=== PATIENT | male | born 1935 | race Two or more races ===

== ENCOUNTER 2018-10-31 14:47 | Emergency (ER) | payer MEDICARE, OTHER ==
[~2018-10-31] VITALS: Ht 170.2 cm; Wt 77.3 kg
[~2018-10-31 14:47] MED LIST: ASPI-817 PO; CLOP75TA27 PO; ESOM40CA PO; FINA5TAB4 PO; HYDR12.58 PO; ISOS60TA PO; NIFE30TA23 PO; NYST15CR28 TOP; OLME20TA20 PO; ROSU10TA55 PO; TAMS0.4C2 PO
[2018-10-31 15:13] VITALS: Ht 170.2 cm; Wt 77.3 kg
--- NOTE | 2018-10-31 15:59 | ERD ---
ER Documentation Chief Complaint Chief Complaint Bleeding from pacemaker surgery site X 1 day ROS All systems reviewed and are negative except as per history of present illness. Medications Home Meds Reported Medications Finasteride* (Finasteride*) 5 Mg Tablet, 5 MG PO DAILY, TAB 09/25/18 Tamsulosin Hcl* (Tamsulosin Hcl*) 0.4 Mg Cap.er.24h, 0.4 MG PO HS, CAP 09/25/18 Nystatin* (Nystatin*) 15 Gm Cr, 1 APPLIC TOP BID, #1 TUB 09/25/18 Rosuvastatin Calcium* (Crestor*) 10 Mg Tablet, 10 MG PO QHS, #30 TAB 09/25/18 Esomeprazole Mag Trihydrate (Nexium) 40 Mg Capsule.dr, 40 MG PO AC BREAKFAST, #30 CAP 09/25/18 Hydrochlorothiazide* (Hydrochlorothiazide*) 12.5 Mg Tablet, 12.5 MG PO DAILY, #30 TAB 09/25/18 Olmesartan Medoxomil (Benicar) 20 Mg Tablet, 20 MG PO DAILY, #30 TAB 09/25/18 Isosorbide Mononitrate* (Isosorbide Mononitrate*) 60 Mg Tab.er.24h, 60 MG PO DAILY, TAB 09/25/18 Aspirin* (Aspirin* EC) 81 Mg Tablet.dr, 81 MG PO DAILY, TAB 09/25/18 Nifedipine* (Nifedipine ER*) 30 Mg Tablet.sa, 30 MG PO DAILY, TAB.SA 09/25/18 Clopidogrel Bisulfate (Clopidogrel) 75 Mg Tablet, 75 MG PO DAILY, #30 TAB 09/25/18 Allergies Allergies: Coded Allergies: No Known Allergy (Unverified , 09/25/18) PMhx/Soc History of Surgery: Yes (CABG, PCI w/ stent) Hx Cardiac Disorders: Yes (Hypertension, CAD, pacemaker) Hx Psychiatric Problems: No Hx Miscellaneous Medical Probl: Yes (Hyperlipidemia, BPH) Hx Alcohol Use: No Hx Substance Use: No Hx Tobacco Use: No Smoking Status: Never smoker Physical Exam Vitals Vital Signs Date Temp Pulse Resp B/P (MAP) Pulse Ox O2 O2 Flow FiO2 Time Delivery Rate 10/31/18 97.7 71 18 192/112 0 15:13 (138) Physical Exam GENERAL: Well-developed, well-nourished, well-hydrated, in no apparent distress, looks nontoxic in appearance CARDIAC: Regular rate and rhythm, no murmurs rubs or gallops LUNGS: Clear bilaterally no wheezing crackles or stridor ABDOMEN: Soft nontender, no guarding, no rigidity, no rebound, no psoas sign no obturator sign. SKIN: Warm and dry to touch, no abrasions, contusions, small appropriately sized hematoma over the left lateral chest at the pacemaker surgical site. Wound is well approximated no wound dehiscence noted no active bleeding noted. The skin over the surgical site is clean and dry without ecchymosis or purulent discharge. Surgical site is nontender to touch. Departure Diagnosis: Primary Impression: Postoperative hematoma Surgical complication system/body Area: subcutaneous tissue Procedure type: dermatologic Qualified Codes: L76.31 - Postprocedural hematoma of skin and subcutaneous tissue following a dermatologic procedure Condition: Good ELIZABETH CLAROS MD Oct 31, 2018 15:59
[2018-10-31 16:08] VITALS: BP 165/86; PULSE 70; RESP 18
== END 2018-10-31 16:16 | disposition home or self-care (01) ==
LOC: E/R 14:47
DX: L76.31 Postprocedural hematoma of skin and subcutaneous tissue following a dermatologic procedure (principal); I25.10 Atherosclerotic heart disease of native coronary artery without angina pectoris; I10 Essential (primary) hypertension; Z79.82 Long term (current) use of aspirin; Z79.01 Long term (current) use of anticoagulants; Z95.1 Presence of aortocoronary bypass graft
CPT/HCPCS: 99282